=== PATIENT | male | born 2000 | race Caucasian/White ===

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

== ENCOUNTER → 2024-08-08 12:19 | Outpatient (CLI) | payer SELFPAY ==
[2024-08-08 14:14] LABS: Urine N gonorrhoeae NOT DETECTED
[2024-08-08 14:16] LABS: Urine Chlamydia NOT DETECTED
== END ==
PROVIDERS: PCP Family Medicine; Visit Provider Physician Assistant
DX: Z11.3 Encounter for screening for infections with a predominantly sexual mode of transmission (principal)
CPT/HCPCS: 87491; 87591